=== PATIENT | female | born 1975 | race Caucasian/White ===

== ENCOUNTER 2016-12-31 10:37 | Emergency (ER) | payer SELFPAY ==
[~2016-12-31] VITALS: Ht 172.7 cm; Wt 80.0 kg
[2016-12-31 10:48] VITALS: Ht 172.7 cm; Wt 80.0 kg
[2016-12-31] MEDS ORDERED: LORAZEPAM 2 MG INJ IM ONE (11:30)
[2016-12-31] MEDS ORDERED: HALOPERIDOL 5 MG INJ IV ONE (11:30)
[2016-12-31 11:39] LABS: ADD UMIC YES; UR ASCORBIC ACID NEGATIVE (NEGATIVE); UR BACTERIA FEW /HPF (NONE SEEN); UR BILIRUBIN (Dip) NEGATIVE (NEGATIVE); UR BLOOD (Dip) 1+ mg/dL (NEGATIVE); UR CLARITY CLOUDY (CLEAR); UR COLOR YELLOW (YELLOW); UR GLUCOSE (Dip) NEGATIVE (NEGATIVE); UR KETONES (Dip) NEGATIVE (NEGATIVE); UR LEUKOCYTE ESTERASE (Dip) 2+ Leu/ul (NEGATIVE); UR MUCUS MANY /HPF (NONE SEEN); UR NITRITE (Dip) NEGATIVE (NEGATIVE); UR RBC 5 /HPF (0-5); UR SQUAMOUS EPITHELIAL CELL FEW /HPF (FEW); UR TOTAL PROTEIN (Dip) 1+ mg/dl (NEGATIVE); UR UROBILINOGEN (Dip) 1+ mg/dL (NEGATIVE)
[2016-12-31 11:43] LABS: CANNABINOIDS Positive (NEGATIVE); OPIATES Negative (NEGATIVE)
[2016-12-31 11:51] LABS: BARBITURATES Negative (NEGATIVE); BENZODIAZEPINES Negative (NEGATIVE); COCAINE Positive (NEGATIVE)
[2016-12-31] MEDS ORDERED: HALOPERIDOL 5 MG INJ IM ONE (12:00)
[2016-12-31] MEDS ORDERED: CIPROFLOXACIN 500 MG TAB PO ONE (12:00)
[2016-12-31 12:10] LABS: BASOPHILS % 0.5 % (0.0-2.0); EOSINOPHILS # 0.1 10^3/ul (0.0-0.5); EOSINOPHILS % 1.3 % (0.0-7.0); HEMATOCRIT 38.5 % (37.0-47.0); HEMOGLOBIN 13.2 g/dl (12.0-16.0); LYMPHOCYTES # 2.2 10^3/ul (0.8-2.9); LYMPHOCYTES % 29.4 % (15.0-51.0); MEAN CORPUSCULAR HGB CONC 34.3 g/dl (32.0-37.0); MEAN CORPUSCULAR VOLUME 87.5 fl (82.0-101.0); MONOCYTE # 0.6 10^3/ul (0.3-0.9); MONOCYTES % 7.4 % (0.0-11.0); PLATELET COUNT 377 10^3/UL (140-415); RED CELL DISTRIBUTION WIDTH 14.5 % (11.5-14.5); WHITE BLOOD COUNT 7.5 10^3/ul (4.8-10.8)
[2016-12-31 12:46] LABS: ALANINE AMINOTRANSFERASE 32 IU/L (13-69); ALBUMIN 4.5 g/dl (3.3-4.9); ALKALINE PHOSPHATASE 82 IU/L (42-121); ANION GAP 14 (8-16); ASPARTATE AMINO TRANSFERASE 30 IU/L (15-46); BILIRUBIN,INDIRECT 0.3 mg/dl (0-1.1); BILIRUBIN,TOTAL 0.3 mg/dl (0.2-1.3); BLOOD UREA NITROGEN 17 mg/dl (7-20); CALCIUM 9.5 mg/dl (8.4-10.2); CARBON DIOXIDE 24 mmol/L (21-31); CHLORIDE 107 mmol/L (97-110); CREATININE 0.75 mg/dl (0.44-1.00); GLUCOSE 98 mg/dl (70-220); POTASSIUM 3.7 mmol/L (3.5-5.1); SODIUM 141 mmol/L (135-144); TOTAL PROTEIN 7.9 g/dl (6.1-8.1)
[2016-12-31 12:47] LABS: ALBUMIN/GLOBULIN RATIO 1.32
[2016-12-31 12:54] LABS: ACETAMINOPHEN < 10.0 ug/ml (10.0-30.0); ETHANOL < 10.0 mg/dl; SALICYLATE < 1.0 mg/dl (5.0-30.0)
--- NOTE | 2016-12-31 18:45 | ERA ---
ER Documentation Chief Complaint Date/Time DATE: 12/31/16 TIME: 18:42 Chief Complaint BIB RA FOR EVAL OF AGITATION. 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 The patient states that she did smoke marijuana which could have been "laced with something". The patient is unable to give detailed history secondary to her clinical condition at this time. The patient states that she is feeling very anxious. She denies any homicidal or suicidal ideation at this time ROS All systems reviewed and are negative except as per history of present illness. Allergies Allergies: Coded Allergies: Sulfa (Sulfonamide Antibiotics) (Unverified Allergy, Unknown, 12/31/16) PMhx/Soc Medical and Surgical Hx: pt denies Medical Hx History of Surgery: Yes (OVARIAN) Anesthesia Reaction: No Hx Neurological Disorder: No Hx Respiratory Disorders: No Hx Cardiac Disorders: No Hx Psychiatric Problems: Yes (ANXIETY) Hx Miscellaneous Medical Probl: No Hx Substance Use: Yes (MJ, METH, COCAINE) Hx Tobacco Use: Yes Smoking Status: Current some day smoker Physical Exam Vitals Vital Signs Date Time Temp Pulse Resp B/P Pulse Ox O2 Delivery O2 Flow Rate FiO2 12/31/16 18:13 70 17 120/75 100 Room Air 12/31/16 10:48 98.6 114 19 132/95 99 Physical Exam INITIAL VITAL SIGNS: Reviewed by me GENERAL: The patient is disheveled appearing female, HEENT: Pappears to be agitated upils equal, round, and reactive to light. EOMI. There is no scleral icterus. NECK: C-spine is soft and supple, there is no meningismus. There is no cervical lymphadenopathy. LUNGS: Clear to auscultation bilaterally. There are no rales, wheezes or rhonchi. HEART: Regular rate and rhythm, no murmurs, clicks, rubs or gallops. ABDOMEN: Soft, non-tender, non-distended. There are bowel sounds in all four quadrants. No rebound or guarding. EXTREMITIES: There is no peripheral cyanosis or edema. No focal swelling or erythema. NEUROLOGICAL: The patient moves all four extremities with 5/5 strength. Cranial nerves II - XII are intact. Normal gait. Alert and oriented SKIN: There is no apparent rash or petechiae. HEME/LYMPHATIC: There is no evidence of excessive bruising or lymphedema. PSYCHIATRIC: The patient does not appear anxious or depressed. Result Diagram: 12/31/16 1145 12/31/16 1145 Results 24 hrs Laboratory Tests Test 12/31/16 11:00 12/31/16 11:45 Urine Color YELLOW Urine Clarity CLOUDY Urine pH 5.0 Urine Specific [place] 1.030 Urine Ketones NEGATIVEmg/dL Urine Nitrite NEGATIVEmg/dL Urine Bilirubin NEGATIVEmg/dL Urine Urobilinogen 1+mg/dL Urine Leukocyte Esterase 2+Jemima/ul Urine Microscopic RBC 5/HPF Urine Microscopic WBC 23/HPF Urine Squamous Epithelial Cells FEW/HPF Urine Bacteria FEW/HPF Urine Mucus MANY/HPF Urine Hemoglobin 1+mg/dL Urine Glucose NEGATIVEmg/dL Urine Total Protein 1+mg/dl Urine Opiates Screen Negative Urine Barbiturates Negative Urine Amphetamines Screen POSITIVE Urine Benzodiazepines Screen Negative Urine Cocaine Screen Positive Urine Cannabinoids Positive White Blood Count 7.510^3/ul Red Blood Count 4.4010^6/ul Hemoglobin 13.2g/dl Hematocrit 38.5% Mean Corpuscular Volume 87.5fl Mean Corpuscular Hemoglobin 30.0pg Mean Corpuscular Hemoglobin Concent 34.3g/dl Red Cell Distribution Width 14.5% Platelet Count 51525^3/UL Mean Platelet Volume 9.0fl Neutrophils % 61.0% Lymphocytes % 29.4% Monocytes % 7.4% Eosinophils % 1.3% Basophils % 0.5% Nucleated Red Blood Cells % 0.0/100WBC Neutrophils # (Manual) 4.610^3/ul Lymphocytes # 2.210^3/ul Monocytes # 0.610^3/ul Eosinophils # 0.110^3/ul Basophils # 0.010^3/ul Nucleated Red Blood Cells # 0.010^3/ul Sodium Level 141mmol/L Potassium Level 3.7mmol/L Chloride Level 107mmol/L Carbon Dioxide Level 24mmol/L Anion Gap 14 Blood Urea Nitrogen 17mg/dl Creatinine 0.75mg/dl Glucose Level 98mg/dl Calcium Level 9.5mg/dl Total Bilirubin 0.3mg/dl Direct Bilirubin 0.00mg/dl Indirect Bilirubin 0.3mg/dl Aspartate Amino Transf (AST/SGOT) 30IU/L Alanine Aminotransferase (ALT/SGPT) 32IU/L Alkaline Phosphatase 82IU/L Total Protein 7.9g/dl Albumin 4.5g/dl Globulin 3.40g/dl Albumin/Globulin Ratio 1.32 Salicylates Level < 1.0mg/dl Acetaminophen Level < 10.0ug/ml Ethyl Alcohol Level < 10.0mg/dl Current Medications Medications (Trade) Dose Ordered Sig/Thang Route PRN Reason Start Time Stop Time Status Last Admin Dose Admin Lorazepam (Ativan) 2 mg ONCE ONCE IM 12/31/16 11:30 12/31/16 11:31 DC 12/31/16 11:20 Haloperidol (Haldol) 5 mg ONCE ONCE IV 12/31/16 11:30 12/31/16 11:41 DC Haloperidol (Haldol) 5 mg ONCE ONCE IM 12/31/16 12:00 12/31/16 12:01 DC 12/31/16 11:43 Ciprofloxacin (Cipro) 500 mg ONCE ONCE PO 12/31/16 12:00 12/31/16 12:01 DC 12/31/16 15:44 Procedures/MDM This 41-year-old female presents to the emergency room for evaluation of agitation and anxiety. This patient was walking into other patient's rooms, she was very agitated and was screaming. The patient was given Haldol, and Ativan. She will be evaluated by psychiatric evaluation team and the determination was made aware that this patient is placed on a hold when she more arousable. Departure Diagnosis: Primary Impression: Agitation Additional Impressions: Polysubstance abuse Restlessness and agitation Condition: Stable MAVERICK MO DO Dec 31, 2016 18:45
--- NOTE | 2016-12-31 19:40 | PSY ---
Date/Time of Note Date/Time of Note DATE: 12/31/16 TIME: 19:33 Psychiatric Subjective Eval Consent Pt consented to telemedicine: Yes Subjective Evaluation Patient location: emergency Chief Complaint: BIB RA FOR EVAL OF AGITATION. 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 For aggression she got haldol, ativan, sh e is calmer but still quite incoherent , irritable mosly but calmer than before. Past psychiatric history took Ritalin before off and on. denies otherwise Medical history Problems Medical Problems: (1) Agitation Status: Acute (2) Polysubstance abuse Status: Acute (3) Restlessness and agitation Status: Acute Allergies: Coded Allergies: Sulfa (Sulfonamide Antibiotics) (Unverified Allergy, Unknown, 12/31/16) Substance Abuse Substance abuse history: Yes Social History Marital status: single Psychiatric Objective Eval Review of Systems: Review of Systems: Not Applicable Physical Examination: Physical Examination: Not Applicable Mental Status Examination: Appearance: Disheveled Eye Contact: Poor Behavior: Guarded, Agitated, Bizarre Speech: Disorganized, Slurred AFFECT: Libile Mood: Irritable Though Process: Loose Suicidal: No Homicidal: No On 72 hour hold: Yes Orientation: x2 Cognition: Alert Insight: Impared Judgement: Impared Attention Span: Distractible Laboratory Results Laboratory Tests Test 12/31/16 11:00 12/31/16 11:45 Urine Color YELLOW Urine Clarity CLOUDY Urine pH 5.0 Urine Specific [place] 1.030 Urine Ketones NEGATIVEmg/dL Urine Nitrite NEGATIVEmg/dL Urine Bilirubin NEGATIVEmg/dL Urine Urobilinogen 1+mg/dL Urine Leukocyte Esterase 2+Jemima/ul Urine Microscopic RBC 5/HPF Urine Microscopic WBC 23/HPF Urine Squamous Epithelial Cells FEW/HPF Urine Bacteria FEW/HPF Urine Mucus MANY/HPF Urine Hemoglobin 1+mg/dL Urine Glucose NEGATIVEmg/dL Urine Total Protein 1+mg/dl Urine Opiates Screen Negative Urine Barbiturates Negative Urine Amphetamines Screen POSITIVE Urine Benzodiazepines Screen Negative Urine Cocaine Screen Positive Urine Cannabinoids Positive White Blood Count 7.510^3/ul Red Blood Count 4.4010^6/ul Hemoglobin 13.2g/dl Hematocrit 38.5% Mean Corpuscular Volume 87.5fl Mean Corpuscular Hemoglobin 30.0pg Mean Corpuscular Hemoglobin Concent 34.3g/dl Red Cell Distribution Width 14.5% Platelet Count 17414^3/UL Mean Platelet Volume 9.0fl Neutrophils % 61.0% Lymphocytes % 29.4% Monocytes % 7.4% Eosinophils % 1.3% Basophils % 0.5% Nucleated Red Blood Cells % 0.0/100WBC Neutrophils # (Manual) 4.610^3/ul Lymphocytes # 2.210^3/ul Monocytes # 0.610^3/ul Eosinophils # 0.110^3/ul Basophils # 0.010^3/ul Nucleated Red Blood Cells # 0.010^3/ul Sodium Level 141mmol/L Potassium Level 3.7mmol/L Chloride Level 107mmol/L Carbon Dioxide Level 24mmol/L Anion Gap 14 Blood Urea Nitrogen 17mg/dl Creatinine 0.75mg/dl Glucose Level 98mg/dl Calcium Level 9.5mg/dl Total Bilirubin 0.3mg/dl Direct Bilirubin 0.00mg/dl Indirect Bilirubin 0.3mg/dl Aspartate Amino Transf (AST/SGOT) 30IU/L Alanine Aminotransferase (ALT/SGPT) 32IU/L Alkaline Phosphatase 82IU/L Total Protein 7.9g/dl Albumin 4.5g/dl Globulin 3.40g/dl Albumin/Globulin Ratio 1.32 Salicylates Level < 1.0mg/dl Acetaminophen Level < 10.0ug/ml Ethyl Alcohol Level < 10.0mg/dl Assessment and Plan Assessment/Diagnosis [place] I: psychosis NOS substance use disorder [place] II: deferred [place] III: none [place] IV: moderate [place] V: 20 Recommendation/Plan Medication Management Haldol 5mg PO or IM q 6 hrs PRN with Ativan 1mg IM and Benadryl 50mg IM PRN 6 hrs. Psychosis may sibside as times passes and she clears drugs however she may have underlying psych illness which can be detremined once detoxed here . Currently, gravely disabled, agressive nay douglass, needs to be on 5150 hold and psychiatric inpatient tx Follow-up/Disposition Psychosis may subside as times passes and she clears drugs however she may have underlying psych illness which can be detremined once detoxed here . Currently, gravely disabled, agressive towrads others, needs to be on 5150 hold and psychiatric inpatient tx 5150 Recommendation: Place Hold ANNIA DASILVA MD Dec 31, 2016 19:40
[2016-12-31 21:43] VITALS: BP 116/75; PULSE 72; RESP 17; TEMP 100.7
--- NOTE | 2017-01-01 00:46 | PSY ---
Date/Time of Note Date/Time of Note DATE: 01/01/17 TIME: 00:34 Psychiatric Subjective Eval Consent Pt consented to telemedicine: Yes Subjective Evaluation Patient location: emergency Chief Complaint: BIB RA FOR EVAL OF AGITATION. 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 Problems Medical Problems: (1) Agitation Status: Acute (2) Polysubstance abuse Status: Acute (3) Restlessness and agitation Status: Acute Allergies: Coded Allergies: Sulfa (Sulfonamide Antibiotics) (Unverified Allergy, Unknown, 12/31/16) Social History Marital status: single Psychiatric Objective Eval Mental Status Examination: Laboratory Results Laboratory Tests Test 12/31/16 11:00 12/31/16 11:45 Urine Color YELLOW Urine Clarity CLOUDY Urine pH 5.0 Urine Specific [place] 1.030 Urine Ketones NEGATIVEmg/dL Urine Nitrite NEGATIVEmg/dL Urine Bilirubin NEGATIVEmg/dL Urine Urobilinogen 1+mg/dL Urine Leukocyte Esterase 2+Jemima/ul Urine Microscopic RBC 5/HPF Urine Microscopic WBC 23/HPF Urine Squamous Epithelial Cells FEW/HPF Urine Bacteria FEW/HPF Urine Mucus MANY/HPF Urine Hemoglobin 1+mg/dL Urine Glucose NEGATIVEmg/dL Urine Total Protein 1+mg/dl Urine Opiates Screen Negative Urine Barbiturates Negative Urine Amphetamines Screen POSITIVE Urine Benzodiazepines Screen Negative Urine Cocaine Screen Positive Urine Cannabinoids Positive White Blood Count 7.510^3/ul Red Blood Count 4.4010^6/ul Hemoglobin 13.2g/dl Hematocrit 38.5% Mean Corpuscular Volume 87.5fl Mean Corpuscular Hemoglobin 30.0pg Mean Corpuscular Hemoglobin Concent 34.3g/dl Red Cell Distribution Width 14.5% Platelet Count 10086^3/UL Mean Platelet Volume 9.0fl Neutrophils % 61.0% Lymphocytes % 29.4% Monocytes % 7.4% Eosinophils % 1.3% Basophils % 0.5% Nucleated Red Blood Cells % 0.0/100WBC Neutrophils # (Manual) 4.610^3/ul Lymphocytes # 2.210^3/ul Monocytes # 0.610^3/ul Eosinophils # 0.110^3/ul Basophils # 0.010^3/ul Nucleated Red Blood Cells # 0.010^3/ul Sodium Level 141mmol/L Potassium Level 3.7mmol/L Chloride Level 107mmol/L Carbon Dioxide Level 24mmol/L Anion Gap 14 Blood Urea Nitrogen 17mg/dl Creatinine 0.75mg/dl Glucose Level 98mg/dl Calcium Level 9.5mg/dl Total Bilirubin 0.3mg/dl Direct Bilirubin 0.00mg/dl Indirect Bilirubin 0.3mg/dl Aspartate Amino Transf (AST/SGOT) 30IU/L Alanine Aminotransferase (ALT/SGPT) 32IU/L Alkaline Phosphatase 82IU/L Total Protein 7.9g/dl Albumin 4.5g/dl Globulin 3.40g/dl Albumin/Globulin Ratio 1.32 Salicylates Level < 1.0mg/dl Acetaminophen Level < 10.0ug/ml Ethyl Alcohol Level < 10.0mg/dl Assessment Additional comments: IDENTIFYING INFORMATION: 41 year old Female patient who is currently located at the hospital and for whom psychiatric consultation was requested. SOURCES OF INFORMATION: The patient who appears to be unreliable and the medical records; the nursing staff. CHIEF COMPLAINT: "I was having an episode". HISTORY OF PRESENT ILLNESS: The patient was interviewed via telemedicine in the presence of and under the supervision of nursing staff of the hospital. The consent to conducting this interview via telemedicine was obtained by the nursing staff at the hospital. RN Brooke reports that the patient presented with agitation, having AH, was delusional and anxious, disorganized and walking into different rooms. Is not on a hold. The patient was evaluated by Dr. Heather arenas. The patient exhibited aggressive behavior, hitting staff and received Haldol and Ativan for aggression. She was incoherent a few hours ago as well as irritable. The patient was diagnosed with psychosis not otherwise specified, substance use disorder. Inpatient admission to psychiatry on a 5150 hold was recommended. The patient received 5 mg of Haldol IM as well as 2 mg of lorazepam IM at around noon. The patient reports that she had an episode while smoking MJ. She reports that she had a dry mouth, the black skirt was quite nice, a dark blue skirt I had on me. Admits to feeling paranoid, that someone nearby by proxy is after me, this thing is messing me up, just for fun. Denies having AH, VH, SI, HI. The patient denies using alcohol heavily or regularly. The patient reports using MJ once per month. Last use was a few months ago. The patient denies using any other substances. In terms of past psychiatric history, the patient reports having a history of no past psychiatric hospitalizations. The patient reports having a history of no past suicide attempts. PAST MEDICAL HISTORY: none. CURRENT MEDICATIONS: none. ALLERGIES TO MEDICATIONS: sulfa, SOCIAL HISTORY: lives with someone else, single, no children; not employed. LABORATORY TESTS: CBC unremarkable, CMP unremarkable, UDS positive for amphetamines, cocaine, cannabinoids, alcohol was not detected. REVIEW OF SYSTEMS: Constitutional (e.g., fever, weight loss): negative; Eyes, Ears, Nose, Mouth, Throat: negative; Cardiovascular: negative; Respiratory: negative; Gastrointestinal: negative; Genitourinary: negative; Musculoskeletal: negative; Integumentary (skin and/or breast): negative; Neurological: negative; Psychiatric: as per HPI; Endocrine: negative; Hematologic/Lymphatic: negative; Allergic/Immunologic: negative. MENTAL STATUS EXAMINATION: General Appearance and Behavior: somewhat sleepy, appears to be responding to internal stimuli, partially cooperative with the interview, distant with the current interviewer, makes poor eye contact, poorly groomed, decreased psychomotor activity, no abnormal movements noted. Speech: Normal rate, regular rhythm, normal latency, normal volume. Flow of thought: tangential, illogical, not goal-directed. Content of thought: denies having auditory hallucinations, + paranoid delusions , no visual hallucinations, denies having suicidal ideation; no homicidal ideation. Mood: "OK". Affect: agitated, angry, flat, decreased range of reactivity. Attention: normal based on the interview. Insight: poor. Judgment: poor. Memory: normal based on the interview. Sensorium: normal based on the interview. ASSESSMENT: The patient's presentation and history are consistent with the diagnosis of unspecified psychotic disorder, r/o stimulant use disorder, cocaine use disorder , cannabis use disorder. The pt presents with an exacerbation of psychosis in the context of substance use. [place] I: unspecified psychotic disorder, r/o stimulant use disorder, cocaine use disorder, cannabis use disorder. [place] II: Deferred. [place] III: see PMH. [place] IV: social stressors. [place] V: GAF: 10. PLAN: - Medication management: Would start risperidone 0.5 mg by mouth twice a day. Would start haloperidol 5 mg IM PRN severe agitation q4 hours. Would start diphenhydramine 50 mg IM PRN severe agitation q4 hours. Would start lorazepam 2 mg IM PRN severe agitation q4 hours Will defer to the inpatient psychiatry team for other medication changes. - Labs: No other laboratory tests are needed at this time. - Psychotherapy: Provided supportive psychotherapy and psychoeducation. - Disposition: Would recommend voluntary admission to the inpatient psychiatric unit as the patient would benefit from such an intervention so long as the patient has been cleared medically for admission to psychiatry. The patient is agreeable to being hospitalized in the inpatient psychiatric unit at this time. Would place on suicide precautions. The patient is willing to be admitted to the psychiatric hospital at this time but at the same time she fulfills criteria for being placed on an involuntary hold for being a danger to being gravely disabled due to a psychiatric disorder. Discussed about the above plan with Dr. Watkins. JV YUN MD Jan 01, 2017 00:46
--- NOTE | 2017-01-01 05:58 | PSY ---
Date/Time of Note Date/Time of Note DATE: 01/01/17 TIME: 05:39 Psychiatric Subjective Eval Subjective Evaluation Patient location: emergency Chief Complaint: BIB RA FOR EVAL OF AGITATION. 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 HOwever patient has then been calm and organized, alert and oriented and needs reevaluation. Patient tells me that she used marijuana that was "laced with amphetamine " but did not know that and she " went crazy", she states that she is feeling better now and wants to go home, she denies any si or hi, denies any past or current manic or psychotic symptoms, denies feeling deppressed but has been feeling anxious with problem sleep and insomnia for 2 weeks. Past psychiatric history past suicidal attempt "yes years ago "" Hospitalization: yes Family History denies Medical history Problems Medical Problems: (1) Agitation Status: Acute (2) Polysubstance abuse Status: Acute (3) Restlessness and agitation Status: Acute Allergies: Coded Allergies: Sulfa (Sulfonamide Antibiotics) (Unverified Allergy, Unknown, 12/31/16) Substance Abuse Substance abuse history: Yes (methamphetamine) Prior substance abuse treatmen: No Social History Marital status: single Level of education: hs DPA/Conservatorship: No Occupation/Detention: unemployed Psychiatric Objective Eval Review of Systems: Review of Systems: Not Applicable Physical Examination: Physical Examination: Applicable Sleep: Insomnia Appetite: Decreased Energy: Decreased Interest: Decreased Mental Status Examination: Appearance: Disheveled Eye Contact: Good Psychomotor Activity: Normal Behavior: Cooperative Speech: Clear AFFECT: Appropriate Mood: Appropriate/Full Though Process: Linear Thought Content: Normal Suicidal: No Homicidal: No On 72 hour hold: No Orientation: x3 Cognition: Alert Insight: Intact Judgement: Intact Attention Span: Intact Laboratory Results Laboratory Tests Test 12/31/16 11:00 12/31/16 11:45 Urine Color YELLOW Urine Clarity CLOUDY Urine pH 5.0 Urine Specific [place] 1.030 Urine Ketones NEGATIVEmg/dL Urine Nitrite NEGATIVEmg/dL Urine Bilirubin NEGATIVEmg/dL Urine Urobilinogen 1+mg/dL Urine Leukocyte Esterase 2+Jemima/ul Urine Microscopic RBC 5/HPF Urine Microscopic WBC 23/HPF Urine Squamous Epithelial Cells FEW/HPF Urine Bacteria FEW/HPF Urine Mucus MANY/HPF Urine Hemoglobin 1+mg/dL Urine Glucose NEGATIVEmg/dL Urine Total Protein 1+mg/dl Urine Test NEGATIVE Urine Opiates Screen Negative Urine Barbiturates Negative Urine Amphetamines Screen POSITIVE Urine Benzodiazepines Screen Negative Urine Cocaine Screen Positive Urine Cannabinoids Positive White Blood Count 7.510^3/ul Red Blood Count 4.4010^6/ul Hemoglobin 13.2g/dl Hematocrit 38.5% Mean Corpuscular Volume 87.5fl Mean Corpuscular Hemoglobin 30.0pg Mean Corpuscular Hemoglobin Concent 34.3g/dl Red Cell Distribution Width 14.5% Platelet Count 26812^3/UL Mean Platelet Volume 9.0fl Neutrophils % 61.0% Lymphocytes % 29.4% Monocytes % 7.4% Eosinophils % 1.3% Basophils % 0.5% Nucleated Red Blood Cells % 0.0/100WBC Neutrophils # (Manual) 4.610^3/ul Lymphocytes # 2.210^3/ul Monocytes # 0.610^3/ul Eosinophils # 0.110^3/ul Basophils # 0.010^3/ul Nucleated Red Blood Cells # 0.010^3/ul Sodium Level 141mmol/L Potassium Level 3.7mmol/L Chloride Level 107mmol/L Carbon Dioxide Level 24mmol/L Anion Gap 14 Blood Urea Nitrogen 17mg/dl Creatinine 0.75mg/dl Glucose Level 98mg/dl Calcium Level 9.5mg/dl Total Bilirubin 0.3mg/dl Direct Bilirubin 0.00mg/dl Indirect Bilirubin 0.3mg/dl Aspartate Amino Transf (AST/SGOT) 30IU/L Alanine Aminotransferase (ALT/SGPT) 32IU/L Alkaline Phosphatase 82IU/L Total Protein 7.9g/dl Albumin 4.5g/dl Globulin 3.40g/dl Albumin/Globulin Ratio 1.32 Salicylates Level < 1.0mg/dl Acetaminophen Level < 10.0ug/ml Ethyl Alcohol Level < 10.0mg/dl Assessment and Plan Assessment/Diagnosis [place] 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 Based on available evidence, this condition CAN be safely treated at a lower level of care effective today. Patient is stable without clear and convincing evidence of imminent danger due to mental illness that requires acute inpatient psychiatric care as the least restrictive alternative. Please discharge patient with referral for follow up to a outpatient mental health clinic for psychotherapy and medication. 5150 Recommendation: Release SEBASTIEN Pappas MD Jan 01, 2017 05:56
== END 2017-01-01 04:56 | disposition home or self-care (01) ==
LOC: E/R 10:37
DX: R45.1 Restlessness and agitation (principal); R40.2242 Coma scale, best verbal response, confused conversation, at arrival to emergency department; F12.10 Cannabis abuse, uncomplicated; F17.210 Nicotine dependence, cigarettes, uncomplicated; R40.2142 Coma scale, eyes open, spontaneous, at arrival to emergency department; R40.2362 Coma scale, best motor response, obeys commands, at arrival to emergency department
CPT/HCPCS: 80053; 80306; 80307; 81001; 84703; 85025; 96372; 99284; J1630; J2060